=== PATIENT | male | born 1970 | race Caucasian/White ===

== ENCOUNTER 2019-04-01 16:49 | Emergency (ER) | payer OTHER ==
[~2019-04-01] VITALS: Ht 180.3 cm; Wt 117.9 kg
[~2019-04-01 16:49] MED LIST: ANAPROX DS550 MG PO; AUGMENTIN 875875 MG PO; BACTRIM DS 8001 TA1 PO; BAYER ASPIRIN C81 MG PO; CIPRO500 MG PO; DOXYCYCLINE100 M3 PO; ENALAPRIL20 MG PO; FLEXERIL10 MG PO; FLEXERIL5 MG PO; HUMALOG100 U/ML SC; KEFLEX500 MG PO; LANTUS100 U/ML SC; MEDROL DOSEPAK4 MG PO; MOTRIN800 MG PO; MS CONTIN60 MG PO; Motrin,Rufen800 MG PO; PREV ADMIT HOME MEDS; PRILOSEC20 MG PO; SENNA8.6 MG PO; SEPTRA DS 800 M1 TAB PO; TRAMADOL HCL50 MG PO; VASOTEC20 MG PO; VICODIN 5/500 505 MG PO; VICTOZA6 MG/ML SC
[2019-04-01 16:51] VITALS: BP 139/71
[2019-04-01] MEDS ORDERED: VALTREX1000 MG PO (18:48)
== END 2019-04-01 19:00 | disposition home or self-care (01) ==
LOC: ED 16:49
DX: B00.1 Herpesviral vesicular dermatitis (principal); N50.89 Other specified disorders of the male genital organs; Z79.82 Long term (current) use of aspirin; Z79.899 Other long term (current) drug therapy

== ENCOUNTER 2019-04-08 05:05 | Emergency (ER) | payer OTHER ==
[~2019-04-08] VITALS: Ht 175.2 cm; Wt 114.3 kg
[~2019-04-08 05:05] MED LIST changes: +VALTREX1000 MG PO
[2019-04-08 05:07] VITALS: BP 150/67
== END 2019-04-08 05:50 | disposition home or self-care (01) ==
LOC: ED 05:05
DX: S60.221A Contusion of right hand, initial encounter (principal); Z79.899 Other long term (current) drug therapy; Z79.82 Long term (current) use of aspirin; W22.01XA Walked into wall, initial encounter; Y93.89 Activity, other specified; Y92.89 Other specified places as the place of occurrence of the external cause; Y99.8 Other external cause status

== ENCOUNTER 2023-05-12 13:29 | Emergency (ER) | payer OTHER ==
[~2023-05-12] VITALS: Ht 177.8 cm; Wt 120.2 kg
[2023-05-12 13:51] VITALS: BP 140/61
[2023-05-12] MEDS ORDERED: Motrin,Rufen800 MG PO (15:15)
[2023-05-12] MEDS ORDERED: NYSTATIN CREAM15 GM T (15:30)
== END 2023-05-12 15:41 | disposition home or self-care (01) ==
LOC: ED 13:29
DX: S70.02XA Contusion of left hip, initial encounter (principal); B37.2 Candidiasis of skin and nail; F17.200 Nicotine dependence, unspecified, uncomplicated; Z79.899 Other long term (current) drug therapy; Z79.82 Long term (current) use of aspirin; Z79.4 Long term (current) use of insulin; Z98.890 Other specified postprocedural states; W20.8XXA Other cause of strike by thrown, projected or falling object, initial encounter; Y93.89 Activity, other specified; Y92.89 Other specified places as the place of occurrence of the external cause; Y99.8 Other external cause status

== ENCOUNTER → 2023-10-11 | Outpatient (CLI) | payer OTHER ==
[~2023-10-11] MED LIST changes: +NYSTATIN CREAM15 GM T
[2023-10-11 15:04] LABS: BASO # 0.1 10*3/uL (0.0-0.1); BASO % 0.6 % (0.0-1.0); EOS # 0.3 10*3/uL (0.0-0.4); HEMATOCRIT 47.4 % (42.0-52.0); LYMPH # 2.9 10*3/uL (1.3-4.4); MEAN CELL VOLUME 88.4 fl (80.0-94.0); MEAN CORPUSCULAR HGB 29.9 pg (27.0-31.0); MEAN CORPUSCULAR HGB CONC 33.8 g/dl (33.0-37.0); MEAN PLATELET VOLUME 11.1 fl (9.6-12.3); MONO # 0.5 10*3/uL (0.1-1.0); NEUT # 4.3 10*3/uL (2.3-7.9); NEUT % 53.2 % (47.0-73.0); PLATELET COUNT AUTOMATED 193 10*3/uL (130-400); RED BLOOD COUNT 5.36 10*6/uL (4.50-5.90); RED CELL DISTRI WIDTH 12.7 % (0-14.5)
[2023-10-11 15:29] LABS: ALKALINE PHOSPHATASE 78 U/L (46-116); BUN 12 mg/dl (9-23); CHLORIDE 106 mmol/L (98-107); CHOLESTEROL 179 mg/dL (<200); LDL CHOLESTEROL 97 mg/dL (9-159); SGPT/ALT 41 U/L (5-49); TOTAL PROTEIN 7.6 gm/dL (6.0-8.0); TRIGLYCERIDES 229 mg/dl (<150)
== END | disposition home or self-care (01) ==
LOC: LAB 14:36
PROVIDERS: ATTEND Nurse Practitioner Family
DX: Z12.11 Encounter for screening for malignant neoplasm of colon (principal); I10 Essential (primary) hypertension; E11.9 Type 2 diabetes mellitus without complications; E78.5 Hyperlipidemia, unspecified

== ENCOUNTER → 2024-01-14 | Outpatient (CLI) | payer OTHER ==
[2024-01-14 13:25] LABS: CHOLESTEROL 104 mg/dL (<200); LDL CHOLESTEROL 41 mg/dL (9-159); SGPT/ALT 39 U/L (5-49); TRIGLYCERIDES 113 mg/dl (<150)
== END | disposition home or self-care (01) ==
LOC: LAB 12:41
PROVIDERS: ATTEND Nurse Practitioner Family
DX: E11.9 Type 2 diabetes mellitus without complications (principal); E78.5 Hyperlipidemia, unspecified

== ENCOUNTER → 2024-12-24 | Outpatient (CLI) | payer OTHER ==
[~2024-12-24] MED LIST changes: +METFORMIN HYD1000 MG PO; +METOPROLOL SUCC50 M1 PO; +PERFLUTREN PROTEIN-A MICROSPHR 3 ML VIAL IV ONE
== END | disposition home or self-care (01) ==
LOC: CARD 12:40
PROVIDERS: ATTEND Internal Medicine Cardiovascular Disease
DX: I10 Essential (primary) hypertension (principal); K21.9 Gastro-esophageal reflux disease without esophagitis; E11.9 Type 2 diabetes mellitus without complications

== ENCOUNTER 2024-12-27 02:36 | Emergency (ER) | payer OTHER ==
[~2024-12-27] VITALS: Ht 175.2 cm; Wt 122.9 kg
[~2024-12-27 02:36] MED LIST changes: -METFORMIN HYD1000 MG PO; -METOPROLOL SUCC50 M1 PO; -PERFLUTREN PROTEIN-A MICROSPHR 3 ML VIAL IV ONE
[2024-12-27 03:15] LABS: BASO % 0.3 % (0.0-1.0); EOS # 0.2 10*3/uL (0.0-0.4); EOS % 2.7 % (1.0-4.0); HEMATOCRIT 43.4 % (42.0-52.0); MEAN CELL VOLUME 87.1 fl (80.0-94.0); MEAN CORPUSCULAR HGB 29.5 pg (27.0-31.0); MEAN CORPUSCULAR HGB CONC 33.9 g/dl (33.0-37.0); MEAN PLATELET VOLUME 10.9 fl (9.6-12.3); MONO # 0.6 10*3/uL (0.1-1.0); NEUT # 5.2 10*3/uL (2.3-7.9); NEUT % 59.3 % (47.0-73.0); PLATELET COUNT AUTOMATED 179 10*3/uL (130-400); RED BLOOD COUNT 4.98 10*6/uL (4.50-5.90); RED CELL DISTRI WIDTH 13.6 % (0-14.5); WHITE BLOOD COUNT 8.8 10*3/uL (4.8-10.8)
[2024-12-27] MEDS ORDERED: METOPROLOL SUCC50 M1 PO (03:28)
[2024-12-27] MEDS ORDERED: METFORMIN HYD1000 MG PO (03:28)
[2024-12-27 03:37] LABS: ALKALINE PHOSPHATASE 66 U/L (46-116); BUN 13 mg/dl (9-23); CHLORIDE 106 mmol/L (98-107); POTASSIUM 3.8 mmol/L (3.4-5.1); SGPT/ALT 45 U/L (5-49); TOTAL PROTEIN 7.2 gm/dL (6.0-8.0)
[2024-12-27] MEDS ORDERED: hydrALAZINE hydrochloride 20 MG/ML VIAL IV ONE (03:55)
[2024-12-27 05:50] VITALS: BP 147/84
== END 2024-12-27 06:11 | disposition home or self-care (01) ==
LOC: ED 02:36
PROVIDERS: Internal Medicine
DX: I16.0 Hypertensive urgency (principal); Z79.899 Other long term (current) drug therapy; Z79.82 Long term (current) use of aspirin; Z79.84 Long term (current) use of oral hypoglycemic drugs; Z98.890 Other specified postprocedural states; Z90.49 Acquired absence of other specified parts of digestive tract; Z53.29 Procedure and treatment not carried out because of patient's decision for other reasons

== ENCOUNTER → 2024-12-30 | Outpatient (CLI) | payer OTHER ==
[~2024-12-30] MED LIST changes: +METFORMIN HYD1000 MG PO; +METOPROLOL SUCC50 M1 PO
[2024-12-30 13:00] LABS: BASO # 0.1 10*3/uL (0.0-0.1); BASO % 0.7 % (0.0-1.0); EOS # 0.3 10*3/uL (0.0-0.4); EOS % 3.9 % (1.0-4.0); HEMATOCRIT 44.9 % (42.0-52.0); MEAN CELL VOLUME 85.9 fl (80.0-94.0); MEAN CORPUSCULAR HGB 29.4 pg (27.0-31.0); MEAN CORPUSCULAR HGB CONC 34.3 g/dl (33.0-37.0); MEAN PLATELET VOLUME 11.2 fl (9.6-12.3); MONO # 0.6 10*3/uL (0.1-1.0); MONO % 6.8 % (3.0-9.0); NEUT # 3.9 10*3/uL (2.3-7.9); NEUT % 47.1 % (47.0-73.0); PLATELET COUNT AUTOMATED 188 10*3/uL (130-400); RED BLOOD COUNT 5.23 10*6/uL (4.50-5.90); RED CELL DISTRI WIDTH 13.5 % (0-14.5); WHITE BLOOD COUNT 8.4 10*3/uL (4.8-10.8)
[2024-12-30 13:46] LABS: ALKALINE PHOSPHATASE 67 U/L (46-116); BUN 13 mg/dl (9-23); CHLORIDE 104 mmol/L (98-107); CHOLESTEROL 152 mg/dL (<200); LDL CHOLESTEROL 67 mg/dL (9-159); POTASSIUM 3.8 mmol/L (3.4-5.1); SGPT/ALT 45 U/L (5-49); TOTAL PROTEIN 7.6 gm/dL (6.0-8.0); TRIGLYCERIDES 261 mg/dl (<150)
== END | disposition home or self-care (01) ==
LOC: LAB 12:35
PROVIDERS: ATTEND Nurse Practitioner Family
DX: I10 Essential (primary) hypertension (principal); E11.9 Type 2 diabetes mellitus without complications; E78.5 Hyperlipidemia, unspecified